=== PATIENT | female | born 1970 | race Caucasian/White ===

== ENCOUNTER 2016-05-15 01:12 | Emergency (ER) | payer BC ==
[2016-05-15 01:26] VITALS: RESP 18
[2016-05-15] MEDS ORDERED: MECLIZINE 12.5 MG TAB PO STA (01:58)
[2016-05-15] MEDS ORDERED: SODIUM CHLORIDE 0.9% 1,000 ML IV STA (01:58)
--- NOTE | 2016-05-15 02:06 | ED ---
Dizziness HPI - General Chief Complaint: Dizziness Stated Complaint: high BP Time Seen by Provider: 05/15/16 01:42 Source: patient, RN notes reviewed Mode of arrival: ambulatory Limitations: no limitations - History of Present Illness Initial Comments: Patient is a 45-year-old female with chief complaint of feeling lightheaded while she was at work today. 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 She states that she was standing for a long period of time and felt as if the area that she was standing was spinning around her. She states that this is never happened before. She states that during the time that she was feeling dizzy her supervisor accounting clerks to occur and to have her blood pressure checked. Her blood pressure at that time was 160/90. Patient reports that she has no significant medical history including high blood pressure and does not take any medications. Patient states that she does take Zoloft for depression but is relatively healthy besides that. Patient states that she is a chronic smoker and smokes approximately a pack a day. Patient reports that she's had an increased cough for the past 3 days. She denies any fever or chills, chest pain or significant shortness of breath. She denies any abdominal pain, nausea vomiting dysuria or hematuria, or changes in stools. - Related Data Home Medications Medication Instructions Recorded Confirmed Sertraline [Zoloft] 100 mg PO DAILY 05/15/16 05/15/16 Previous Rx's Medication Instructions Recorded Albuterol Inhaler [Ventolin Hfa 1 - 2 puff INHALATION Q6HR PRN #1 05/15/16 Inhaler] inhaler methylPREDNISolone Dose Pack 4 mg PO DIRECTED #21 package 05/15/16 [Medrol Dose Pack] Allergies Allergy/AdvReac Type Severity Reaction Status Date / Time aspirin AdvReac Vomiting Verified 05/15/16 01:22 Review of Systems ROS Statement: Those systems with pertinent positive or pertinent negative responses have been documented in the HPI. ROS Other: All systems not noted in ROS Statement are negative. Past Medical History Past Medical History: No Reported History History of Any Multi-Drug Resistant Organisms: None Reported Past Surgical History: No Surgical Hx Reported Past Psychological History: Depression Smoking Status: Current every day smoker Past Alcohol Use History: Occasional Past Drug Use History: None Reported General Exam - General Exam Comments Initial Comments: Well-appearing 45-year-old female. No acute distress.General: Well appearing, well nourished, in no distress. Oriented x 3, normal mood and affect . Ambulating without difficulty. Skin: Good turgor, no rash, unusual bruising or prominent lesions Hair: Normal texture and distribution. HEENT: Head: Normocephalic, atraumatic, no visible or palpable masses, depressions, or scaring. Eyes: Visual acuity intact, conjunctiva clear, sclera non-icteric, EOM intact, PERRL. Ears: EACs clear, TMs translucent & cone of light visualized. hearing intact. Nose: No external lesions, mucosa non-inflamed, septum and turbinates normal Mouth: Mucous membranes moist, no mucosal lesions. Teeth/Gums: No obvious caries or periodontal disease. No gingival inflammation or significant resorption. Pharynx: Mucosa non-inflamed, no tonsillar hypertrophy or exudate Neck: Supple, without lesions, bruits, or adenopathy, thyroid non-enlarged and non-tender Heart: No cardiomegaly or thrills; regular rate and rhythm, no murmur or gallop Lungs: Wheezes of mild wheezing. No evidence of diminished breath sounds. Abdomen: Bowel sounds normal, no tenderness, organomegaly, masses, or hernia Back: Spine normal without deformity or tenderness, no CVA tenderness Rectal: Normal sphincter tone, no hemorrhoids or masses palpable Extremities: No amputations or deformities, cyanosis, edema or varicosities, peripheral pulses intact Musculoskeletal: Normal gait and station. No misalignment, asymmetry, crepitation, defects, tenderness, masses, effusions, decreased range of motion, instability, atrophy or abnormal strength or tone in the head, neck, spine, ribs , pelvis or extremities. Neurologic: CN 2-12 normal. Sensation to pain, touch, and proprioception normal. DTRs normal in upper and lower extremities. No pathologic reflexes. Psychiatric: Oriented X3, intact recent and remote memory, judgment and insight , normal mood and affect. Limitations: no limitations Course Vital Signs 05/15/16 05/15/16 01:23 02:52 Temperature 98.8 F Pulse Rate 82 80 Respiratory 18 18 Rate Blood Pressure 150/81 133/63 O2 Sat by Pulse 97 96 Oximetry EKG Findings - EKG Comments: EKG Findings:: EKG shows normal sinus rhythm. Ventricular rate of 60 bpm. WV interval 160 ms. QRS duration 82 ms. QT/QTc is 416 since 442 ms. No evidence of this elevation or T-wave inversion. No evidence of atrial or ventricular arrhythmias. Medical Decision Making - Medical Decision Making Patient is a 45-year-old female that she claimed of feeling lightheaded while she was standing at work. Patient states that she has also had increased cough for the past 3 days. She is a chronic smoker. Lab work was obtained and IV was established. Patient was given 1 L of fluids and chest x-rays obtained. Chest x-ray shows chronic bronchitis changes and mild right-sided atelectasis. Lab work shows no evidence of any acute abnormalities at this time, and EKG was also normal. Patient will be discharged at this time instructed to follow-up with primary care provider. I will provide the patient a prescription with a inhaler and steroid Dosepak for cough. Return parameters were discussed. - Lab Data Result diagrams: 05/15/16 02:10 05/15/16 02:10 Lab Results 05/15/16 05/15/16 05/15/16 Range/Units 02:10 02:10 02:10 WBC 7.6 (3.8-10.6) k/uL RBC 4.37 (3.80-5.40) m/uL Hgb 14.1 (11.4-16.0) gm/dL Hct 42.3 (34.0-46.0) % MCV 96.8 (80.0-100.0) fL MCH 32.2 (25.0-35.0) pg MCHC 33.2 (31.0-37.0) g/dL RDW 12.3 (11.5-15.5) % Plt Count 201 (150-450) k/uL Neutrophils % 67 % Lymphocytes % 23 % Monocytes % 6 % Eosinophils % 2 % Basophils % 0 % Neutrophils # 5.1 (1.3-7.7) k/uL Lymphocytes # 1.8 (1.0-4.8) k/uL Monocytes # 0.4 (0-1.0) k/uL Eosinophils # 0.2 (0-0.7) k/uL Basophils # 0.0 (0-0.2) k/uL PT 10.5 (9.0-12.0) sec INR 1.0 (<1.1) Sodium 143 (137-145) mmol/L Potassium 4.1 (3.5-5.1) mmol/L Chloride 108 H (98-107) mmol/L Carbon Dioxide 23 (22-30) mmol/L Anion Gap 12 mmol/L BUN 10 (7-17) mg/dL Creatinine 0.60 (0.52-1.04) mg/dL Est GFR (MDRD) Af Amer >60 (>60 ml/min/1.73 sqM) Est GFR (MDRD) Non-Af >60 (>60 ml/min/1.73 sqM) Glucose 125 H (74-99) mg/dL Calcium 9.4 (8.4-10.2) mg/dL Total Bilirubin 0.5 (0.2-1.3) mg/dL AST 16 (14-36) U/L ALT 28 (9-52) U/L Alkaline Phosphatase 76 (38-126) U/L Troponin I (0.000-0.034) ng/mL Total Protein 6.9 (6.3-8.2) g/dL Albumin 3.9 (3.5-5.0) g/dL Urine Color Urine Appearance (Clear) Urine pH (5.0-8.0) Ur Specific [place] (1.001-1.035) Urine Protein (Negative) Urine Glucose (UA) (Negative) Urine Ketones (Negative) Urine Blood (Negative) Urine Nitrate (Negative) Urine Bilirubin (Negative) Urine Urobilinogen (<2.0) mg/dL Ur Leukocyte Esterase (Negative) 05/15/16 05/15/16 Range/Units 02:10 02:40 WBC (3.8-10.6) k/uL RBC (3.80-5.40) m/uL Hgb (11.4-16.0) gm/dL Hct (34.0-46.0) % MCV (80.0-100.0) fL MCH (25.0-35.0) pg MCHC (31.0-37.0) g/dL RDW (11.5-15.5) % Plt Count (150-450) k/uL Neutrophils % % Lymphocytes % % Monocytes % % Eosinophils % % Basophils % % Neutrophils # (1.3-7.7) k/uL Lymphocytes # (1.0-4.8) k/uL Monocytes # (0-1.0) k/uL Eosinophils # (0-0.7) k/uL Basophils # (0-0.2) k/uL PT (9.0-12.0) sec INR (<1.1) Sodium (137-145) mmol/L Potassium (3.5-5.1) mmol/L Chloride (98-107) mmol/L Carbon Dioxide (22-30) mmol/L Anion Gap mmol/L BUN (7-17) mg/dL Creatinine (0.52-1.04) mg/dL Est GFR (MDRD) Af Amer (>60 ml/min/1.73 sqM) Est GFR (MDRD) Non-Af (>60 ml/min/1.73 sqM) Glucose (74-99) mg/dL Calcium (8.4-10.2) mg/dL Total Bilirubin (0.2-1.3) mg/dL AST (14-36) U/L ALT (9-52) U/L Alkaline Phosphatase (38-126) U/L Troponin I <0.012 (0.000-0.034) ng/mL Total Protein (6.3-8.2) g/dL Albumin (3.5-5.0) g/dL Urine Color Yellow Urine Appearance Clear (Clear) Urine pH 5.5 (5.0-8.0) Ur Specific [place] 1.014 (1.001-1.035) Urine Protein Negative (Negative) Urine Glucose (UA) 3+ H (Negative) Urine Ketones Negative (Negative) Urine Blood Negative (Negative) Urine Nitrate Negative (Negative) Urine Bilirubin Negative (Negative) Urine Urobilinogen <2.0 (<2.0) mg/dL Ur Leukocyte Esterase Negative (Negative) - Radiology Data Radiology results: report reviewed Chest x-ray shows mild atelectasis in the right lung base. Possible chronic bronchitis. No evidence of focal pneumonia. Disposition Clinical Impression: Bronchitis, Light-headed Disposition: HOME SELF-CARE Condition: Good Instructions: Dizziness (ED), Acute Bronchitis (ED) Additional Instructions: Patient denies to rest, increase fluids and to complete steroid prescription. Also use albuterol inhaler whenever short of breath or increased coughing. Follow-up with primary care provider within the next 2-3 days. Return to the emergency room if any alarming signs or symptoms occur. Prescriptions: Albuterol Inhaler [Ventolin Hfa Inhaler] 1 - 2 puff INHALATION Q6HR PRN #1 inhaler PRN Reason: Shortness Of Breath methylPREDNISolone Dose Pack [Medrol Dose Pack] 4 mg PO DIRECTED #21 package Time of Disposition: 03:18
[2016-05-15 02:23] LABS: Basophils % (A) 0 %; CH 32.6; CHCM 33.9; Eosinophils # (A) 0.2 k/uL (0-0.7); Eosinophils % (A) 2 %; HCT 42.3 % (34.0-46.0); HDW 2.59; HGB 14.1 gm/dL (11.4-16.0); Luc # (Auto) 0.11; Luc % (Auto) 1; Lymphocytes # (A) 1.8 k/uL (1.0-4.8); Lymphocytes % (A) 23 %; MCH 32.2 pg (25.0-35.0); MCHC 33.2 g/dL (31.0-37.0); MCV 96.8 fL (80.0-100.0); Mean Platelet Volume 7.1; Monocytes # (A) 0.4 k/uL (0-1.0); Monocytes % (A) 6 %; Neutrophils # (A) 5.1 k/uL (1.3-7.7); Neutrophils % (A) 67 %; RBC 4.37 m/uL (3.80-5.40); RDW 12.3 % (11.5-15.5); WBC 7.6 k/uL (3.8-10.6); WBC (Perox) 7.56
[2016-05-15 02:29] LABS: Prothrombin Time 10.5 sec (9.0-12.0)
--- NOTE | 2016-05-15 02:36 | XR ---
EXAMINATION TYPE: XR chest 2V DATE OF EXAM: 05/15/2016 2:20 AM COMPARISON: None. HISTORY: Hypertension dizziness and cough. TECHNIQUE: Frontal and lateral views of the chest are obtained. FINDINGS: Mild peribronchial cuffing is suggested with possible chronic bronchitis changes. Mild atelectasis is suggested in the right lung base. No definite focal pneumonia pneumothorax or ple ural effusion is noted. Heart is not enlarged. [id number] degenerative changes are present in the thoracic spine. IMPRESSION: 1. Mild atelectasis in the right lung base. 2. Possible chronic bronchitis. 3. No focal pneumonia.
[2016-05-15 02:41] LABS: ALT 28 U/L (9-52); AST 16 U/L (14-36); Alkaline Phosphatase 76 U/L (38-126); Anion Gap 12 mmol/L; Blood Urea Nitrogen 10 mg/dL (7-17); Calcium 9.4 mg/dL (8.4-10.2); Carbon Dioxide 23 mmol/L (22-30); Chloride 108 mmol/L (98-107); Glucose 125 mg/dL (74-99); Non-African American GFR(MDRD) >60 (>60 ml/min/1.73 sqM); Potassium 4.1 mmol/L (3.5-5.1); Sodium 143 mmol/L (137-145); Total Bilirubin 0.5 mg/dL (0.2-1.3); Total Protein 6.9 g/dL (6.3-8.2)
[2016-05-15 02:48] LABS: Appearance,Urine Clear (Clear); Bilirubin,Urine Negative (Negative); Glucose,Urine (UA) 3+ (Negative); Ketones,Urine Negative (Negative); Leukocyte Esterase,Urine Negative (Negative); Nitrite,Urine Negative (Negative); PH, Urine 5.5 (5.0-8.0); Protein,Urine Negative (Negative); Specific Gravity,Urine 1.014 (1.001-1.035); UA Billing (MACRO vs. MICRO) CHEM; Urobilinogen,Urine <2.0 mg/dL (<2.0)
[2016-05-15 02:52] VITALS: BP 133/63
[2016-05-15 03:47] VITALS: PULSE 89; TEMP 98
== END 2016-05-15 03:47 | disposition home or self-care (01) ==
LOC: EC 01:12
DX: J20.9 Acute bronchitis, unspecified (principal); R42 Dizziness and giddiness; J98.11 Atelectasis; F32.9 Major depressive disorder, single episode, unspecified; F17.200 Nicotine dependence, unspecified, uncomplicated; Z79.899 Other long term (current) drug therapy; Z88.6 Allergy status to analgesic agent
CPT/HCPCS: 36415; 71020; 80053; 81003; 84484; 85025; 85610; 93005; 96360; 96361; 99284

== ENCOUNTER → 2016-05-21 | Outpatient (CLI) | payer BC ==
--- NOTE | 2016-05-31 11:29 | MM ---
Reason for exam: screening (asymptomatic). Last mammogram was performed 3 years and 4 months ago. Physical Findings: A clinical breast exam by your physician is recommended on an annual basis and results should be correlated with mammographic findings. MG Screening Mammo w CAD Bilateral CC and MLO view(s) were taken. Prior study comparison: January 18, 2013, mammogram, performed at [facility]. There are scattered fibroglandular densities. There is no discrete abnormality. ASSESSMENT: Negative, BI-RAD 1 RECOMMENDATION: Routine screening mammogram of both breasts in 1 year.
== END | disposition home or self-care (01) ==
LOC: RADMAMWWP 08:53
PROVIDERS: ATTEND Obstetrics & Gynecology
DX: Z12.31 Encounter for screening mammogram for malignant neoplasm of breast (principal)

== ENCOUNTER → 2016-05-21 | Outpatient (CLI) | payer BC ==
[2016-05-21 10:10] LABS: Basophils # (A) 0.1 k/uL (0-0.2); Basophils % (A) 1 %; CH 32.3; CHCM 33.2; Eosinophils # (A) 0.1 k/uL (0-0.7); Eosinophils % (A) 1 %; HDW 2.55; HGB 15.4 gm/dL (11.4-16.0); Luc # (Auto) 0.18; Luc % (Auto) 1; Lymphocytes # (A) 2.9 k/uL (1.0-4.8); Lymphocytes % (A) 19 %; MCH 31.3 pg (25.0-35.0); MCHC 32.1 g/dL (31.0-37.0); MCV 97.7 fL (80.0-100.0); Mean Platelet Volume 7.9; Monocytes # (A) 0.8 k/uL (0-1.0); Monocytes % (A) 6 %; Neutrophils # (A) 10.9 k/uL (1.3-7.7); Neutrophils % (A) 73 %; RBC 4.91 m/uL (3.80-5.40); RDW 12.6 % (11.5-15.5); WBC (Perox) 15.24
[2016-05-21 10:37] LABS: Anion Gap 14 mmol/L; Carbon Dioxide 24 mmol/L (22-30); Chloride 103 mmol/L (98-107); Glucose 151 mg/dL (74-99); Non-African American GFR(MDRD) >60 (>60 ml/min/1.73 sqM); Sodium 141 mmol/L (137-145)
[2016-05-21 10:42] LABS: Blood Urea Nitrogen 23 mg/dL (7-17); Potassium 4.9 mmol/L (3.5-5.1)
== END | disposition home or self-care (01) ==
LOC: LABPAT 08:57
PROVIDERS: ATTEND Obstetrics & Gynecology
DX: Z01.812 Encounter for preprocedural laboratory examination (principal)
CPT/HCPCS: 80051; 82565; 82947; 84520; 85025; 86850; 86900; 86901; 87086

== ENCOUNTER 2016-05-28 05:45 | Day surgery (SDC) | payer BC ==
[2016-05-25 08:40] VITALS: BMI 38.0
[~2016-05-28 05:45] MED LIST: ceFAZolin 2 GM in SODIUM CHLORIDE 0.9% 100 ML IVPB ONE
[2016-05-28] MEDS ORDERED: HYDROmorphone 1 MG/ML 1 ML SYRINGE IVP PRN (05:55)
[2016-05-28] MEDS ORDERED: MIDAZOLAM 2 MG/2 ML VIAL IV PRN (05:55)
[2016-05-28] MEDS ORDERED: DEXAMETHASONE SOD PHOSPHATE 10 MG/ML 1 ML VIAL IV ONE (05:55)
[2016-05-28] MEDS ORDERED: ONDANSETRON 4 MG/2 ML VIAL IVP ONE (05:55)
[2016-05-28] MEDS ORDERED: SCOPOLAMINE 1.5MG/72HR PATCH TRANSDERM ONE (05:55)
[2016-05-28] MEDS: LACTATED RINGERS 1,000 ML IV SCH ×2 (06:38→06:42)
[2016-05-28] MEDS ORDERED: LIDOCAINE 1% 20 ML VIAL (10MG/ML) FOR IV START INTRADERMA ONE ×3 (06:38→06:43)
[2016-05-28 06:44] LABS: Glucose,Whole Blood 141 mg/dL (75-99)
[2016-05-28] MEDS ORDERED: PROPOFOL 10 MG/ML 20 ML VIAL IV ONE (07:33)
[2016-05-28] MEDS ORDERED: ROCURONIUM BROMIDE 10 MG/ML 10 ML VIAL IV ONE (07:33)
[2016-05-28] MEDS ORDERED: MIDAZOLAM 2 MG/2 ML VIAL ONE (07:33)
[2016-05-28] MEDS ORDERED: HYDROmorphone (PF) 1 MG/ML ONE (07:33)
[2016-05-28] MEDS ORDERED: SUCCINYLCHOLINE CHLORIDE VIAL 200 MG/10 ML VIAL IV ONE (07:33)
[2016-05-28] MEDS ORDERED: fentaNYL (PF) 50 MCG/ML 2 ML AMP ONE (07:33)
[2016-05-28] MEDS ORDERED: GLYCOPYRROLATE 0.2 MG/ML 2 ML VIAL ONE (07:33)
[2016-05-28] MEDS ORDERED: NEOSTIGMINE 1 MG/ML 10 ML VIAL ONE (07:33)
[2016-05-28] MEDS ORDERED: LIDOCAINE 1% INJ 10MG/ML (20 ML MDV) ONE (07:33)
[2016-05-28] MEDS ORDERED: diphenhydrAMINE 50 MG/ML 1 ML VIAL IVP PRN (07:40)
[2016-05-28] MEDS ORDERED: IBUPROFEN 600 MG TAB PO PRN (07:40)
[2016-05-28] MEDS ORDERED: SIMETHICONE 80 MG CHEWABLE PO PRN (07:40)
[2016-05-28] MEDS ORDERED: METOCLOPRAMIDE 5 MG/ML 2 ML VIAL IVP PRN (07:40)
[2016-05-28] MEDS ORDERED: Acetaminophen-Codeine 300-30mg TAB PO PRN ×2 (07:40)
[2016-05-28] MEDS ORDERED: ZOLPIDEM 5 MG TAB PO PRN (07:40)
[2016-05-28] MEDS ORDERED: ONDANSETRON 4 MG/2 ML VIAL IVP PRN (07:40)
[2016-05-28] MEDS ORDERED: BUPIVACAINE (PF) 0.5% 30 ML VIAL SQ ONE ×2 (08:05→09:48)
--- NOTE | 2016-05-28 09:55 | P.OP ---
Date of Procedure: 05/28/16 Preoperative Diagnosis: #1. Menometrorrhagia #2. Fibroid uterus Postoperative Diagnosis: Same Procedure(s) Performed: #1. Da Malika robotically assisted laparoscopic hysterectomy #2. Bilateral salpingectomy #3. Diagnostic cystoscopy Anesthesia: JUVENAL Surgeon: Eduin Oscar Hog Trader #1: Tasha Jeff Estimated Blood Loss (ml): 40 IV fluids (ml): 1,400 Urine output (ml): 300 Pathology: other (Uterus and bilateral fallopian tubes) Condition: stable Disposition: PACU Operative Findings: Preoperative pelvic examination demonstrated a roughly 5-6 week sized midplane mobile normal uterus with normal adnexa bilaterally. Intraoperatively, the patient was noted to have a filmy omental adhesion to the umbilicus which was released during the surgery. The bladder and bladder peritoneum were densely adherent to the anterior wall uterus and the entire area above the uterine vasculature was very thick and dense from adhesions. The bilateral ovaries were normal. There was evidence of bilateral tubal ligation. The fallopian tubes were removed independently of the uterus and removed through the operative port. Post-procedurally, the hysteroscopic and laparoscopic view of the dome of the bladder demonstrated no evidence of injury. The bilateral ureters were seen peristalsing through the cystoscope. Description of Procedure: The patient was prepped and draped in usual fashion after general endotracheal anesthesia was administered by the anesthesiologist. A weighted speculum was placed and the anterior lip of the cervix was grasped with single-tooth tenaculum. The uterus was sounded to 9 cm and the cervix measured to slightly less than 2.5 cm. [place] selection of an 8 mm uterine manipulator and a 2.5 cm David cup. Cervical stay sutures were placed from 10-8 at the cervicovaginal junction and 2 total 4 and the cervicovaginal junction and firmly tied down. The Rhea uterine manipulator David cup were then applied to the cervix in standard fashion without difficulty. The tenaculum had previously been released. A Saeed catheter was placed for the procedure. Attention was then turned to the abdomen where a site was selected approximately 3-4 cm above the umbilicus in the midline where an 8 mm incision was made in the transverse plane allowing insertion of a 5 mm optical port under direct visualization without difficulty. A site was selected approximately directly laterally to the umbilicus and approximately 12 cm lateral to it where an 8 mm incision was made allowing insertion of an 8 mm da Malika port under direct visualization without difficulty. A similar operation was carried on the left side. The distance between the left da Malika port and the optical trocar was then have and a site selected the approximately 3 cm above the optical port were 10 mm incision was made allowing a 10 mm assistance port to be placed under direct visualization without difficulty. The robot was then docked to the patient without difficulty. I then presented to the console where a male and bipolar cautery forceps was placed in the left arm, arm #2, and a monopolar cautery scissors placed in the right arm, arm #1. The da Malika was then utilized to take the omental adhesion at the umbilicus down sharply with monopolar cautery. The area of adhesion was then examined and any small points of bleeding made hemostatic using the monopolar cautery scissors. Attention was then turned to the pelvis. The left fallopian tube was elevated and removed using the [place] cautery forceps followed by the scissors. An initial attempt to leave it attached to the uterine specimen was abandoned as it was causing visual difficulties. He was therefore removed and removed from the patient through the reference library assistant port. The utero-ovarian ligament was then taken down through the round ligament where the tissues were noted to be extraordinarily thick and dense. Uterine vasculature was skeletonized to the best of our ability and then cauterized. Attention was turned to the right side where the right fallopian tube segment was removed and passed through the assistance port as well. The utero-ovarian and round ligaments were then cauterized similarly to the right side. The bladder peritoneum had been developed across the midline was further developed to join the 2 sides. The bladder peritoneum was then sharply and bluntly dissected across the anterior lower uterine segment. The area across the uterine vasculature on each side was extraordinarily thick and dense. Sharp dissection along with cautery were utilized to stay immediately adjacent to the uterus while controlling any vascular bleeding. Once the uterine vasculature was felt to have been cauterized bilaterally and the bladder was reflected distally anteriorly, the uterus was anteverted and the posterior cul-de-sac entered sharply with the monopolar cautery scissors. Once the David cup was identified, it was followed around to the sides. Occasional use of the bipolar cautery was made where the tissue was too thick to continue down and monopolar fashion. Any small points of bleeding along the way were made hemostatic with Bovie. Once the lateral margins had been transected, the uterus was retroverted and the incision continued across the anterior portion of the vaginal cuff. The uterus was then removed into the vagina with some difficulty as the fundus was moderately larger than the size of the vagina. Once accomplished, the monopolar cautery scissors was replaced with a laparoscopic suturing device. A stitch of O Stratafix suture was utilized to close the vaginal cuff in standard fashion without difficulty. The stitch was removed through the reference library assistant port. The pressure was released and throat suction/irrigation carried out. Any small points of bleeding were made hemostatic using the [place] bipolar cautery forceps. Once hemostasis was adequate, I removed myself from the console returned to the patient where the Saeed catheter had been removed. A diagnostic cystoscope was placed in the bladder and the bladder partially filled. The dome of the bladder was examined both cystoscopically and laparoscopically and found to be without injury. The ureteral orifices were seen peristalsing bilaterally. All instrumentation was then removed and the Saeed catheter return to the patient. The robot was undocked and all the ports removed. The pneumoperitoneum was entirely evacuated. The incisions were closed with interrupted subcuticular stitches of 4-0 Vicryl and then infused with a total of 10 mL of half percent Marcaine without epinephrine. Estimated blood loss for the case was approximate 40 mL. There were no complications. All sponge, instrument, and needle counts were correct. The patient tolerated the procedure well and proceeded to the recovery room in stable condition.
[2016-05-28] MEDS ORDERED: LACTATED RINGERS 1,000 ML IV SCH (10:00)
[2016-05-28] MEDS ORDERED: INSULIN LISPRO (humaLOG) 300 UNIT/3 ML VIAL SQ ONE (10:30)
[2016-05-28 10:33] LABS: Glucose,Whole Blood 248 mg/dL (75-99)
[2016-05-28] MEDS: INSULIN LISPRO (humaLOG) 300 UNIT/3 ML VIAL SQ SCH ×3 (15:56→21:24)
[2016-05-28] MEDS: SENNOSIDES-DOCUSATE SODIUM 1 EACH TAB PO SCH ×2 (15:56→21:23)
[2016-05-28 17:15] LABS: Glucose,Whole Blood 172 mg/dL (75-99)
[2016-05-28] MEDS: KETOROLAC 30 MG/ML 1 ML VIAL IVP PRN (17:20)
[2016-05-28 20:30] LABS: Glucose,Whole Blood 164 mg/dL (75-99)
[2016-05-29 06:39] LABS: Basophils % (A) 0 %; CH 32.3; CHCM 32.4; Eosinophils # (A) 0.2 k/uL (0-0.7); Eosinophils % (A) 2 %; HCT 41.3 % (34.0-46.0); HDW 2.38; HGB 13.3 gm/dL (11.4-16.0); Luc # (Auto) 0.08; Luc % (Auto) 1; Lymphocytes # (A) 0.5 k/uL (1.0-4.8); Lymphocytes % (A) 5 %; MCH 32.3 pg (25.0-35.0); MCHC 32.3 g/dL (31.0-37.0); Mean Platelet Volume 7.1; Monocytes # (A) 0.6 k/uL (0-1.0); Monocytes % (A) 5 %; Neutrophils # (A) 9.9 k/uL (1.3-7.7); Neutrophils % (A) 88 %; RBC 4.13 m/uL (3.80-5.40); RDW 12.5 % (11.5-15.5); WBC 11.3 k/uL (3.8-10.6); WBC (Perox) 12.06
[2016-05-29] MEDS: KETOROLAC 30 MG/ML 1 ML VIAL IVP PRN (06:58)
[2016-05-29 07:08] LABS: Glucose,Whole Blood 120 mg/dL (75-99)
[2016-05-29] MEDS: INSULIN LISPRO (humaLOG) 300 UNIT/3 ML VIAL SQ SCH ×2 (07:50→12:21)
[2016-05-29 09:13] VITALS: BP 114/57; PULSE 67; RESP 18; TEMP 98.6
[2016-05-29] MEDS: SENNOSIDES-DOCUSATE SODIUM 1 EACH TAB PO SCH (09:13)
[2016-05-29 11:50] LABS: Glucose,Whole Blood 187 mg/dL (75-99)
--- NOTE | 2016-05-29 11:59 | P.DS ---
Providers Expected date of discharge: 05/29/16 Attending physician: Eduin Oscar Primary care physician: Roland Armendariz - Discharge Diagnosis(es) (1) Fibroid uterus Current Visit: Yes Status: Acute (2) Menometrorrhagia Current Visit: Yes Status: Acute Hospital Course: The patient is a 45-year-old 2 para 2 who initially presented to the office with complaints of increasing menometrorrhagia and had a known fibroid uterus. She additionally was having some dysmenorrhea. We discussed multiple different treatment options and she requested definitive therapy with hysterectomy. Her surgical history includes the 2 sections and her examination bears out that only an open or laparoscopic approach is viable. As a result, she was taken the operating room for da Malika robotically assisted laparoscopic hysterectomy at which time she also underwent bilateral salpingectomy and subsequent diagnostic cystoscopy. All procedures were entirely uncomplicated though she did have a moderate amount of adhesive disease which was dealt with intraoperatively without complications. Her postoperative course was unremarkable with vital signs remaining stable and her temperature was afebrile throughout. She was tolerating regular diet by the morning of postoperative day #1. She was deemed stable for discharge on postoperative day #1 and was discharged home to follow-up in the office in 2 weeks for incision checks and 8 weeks routinely. Discharge instructions included calling for any significantly increased bleeding, incisional complaints , abdominal pain, fever, or anything else that concerned her. She is additionally instructed to have nothing in the vagina to include intercourse for at least 8 weeks time. She was also instructed to do no driving until off of all pain medications or 2 weeks' time, whichever came first. She understood her instructions and agrees to follow up as noted above. Discharge medications included a prescription for Tylenol 3, 1-2 by mouth every 6 hours when necessary pain, #20 dispensed with no refills. She was otherwise to resume all home medications. She did have moderately elevated blood sugars during her hospital stay and was placed on sliding scale insulin though none of her sugars ever exceeded 190. Discharge hemoglobin and hematocrit were 13.3 and 41.3 respectively. Procedures: #1. Da Malika robotically assisted laparoscopic hysterectomy with bilateral salpingectomy #2. Diagnostic cystoscopy Patient Condition at Discharge: Good Plan - Discharge Summary New Discharge Prescriptions: Acetaminophen-Codeine 300-30mg [Tylenol #3] 2 tab PO Q6H PRN #20 tablet PRN Reason: Pain Discharge Medication List Albuterol Inhaler [Ventolin Hfa Inhaler] 1 - 2 puff INHALATION Q6HR PRN #1 inhaler 05/15/16 [Rx] Sertraline [Zoloft] 100 mg PO HS 05/15/16 [History] Acetaminophen-Codeine 300-30mg [Tylenol #3] 2 tab PO Q6H PRN #20 tablet [Rx] Follow up Appointment(s)/Referral(s): Eduin Oscar MD [STAFF PHYSICIAN] - 2 Weeks Patient Instructions/Handouts: Laparoscopic Hysterectomy (DC) Activity/Diet/Wound Care/Special Instructions: No heavy lifting, no house work, no driving, no intercourse, no tampons, nothing in the vagina. You may shower. Leave the white steri strips in place over your incisions. They will fall off on their own. Notify Dr Oscar if you develop a fever, bleeding from your vagina, increase in pain, or any other concerns or questions you may have. Discharge Disposition: HOME SELF-CARE
[2016-05-29 14:26] LABS: Hemoglobin A1C 6.6 % (4.2-6.1)
== END 2016-05-29 13:00 | disposition home or self-care (01) ==
LOC: OR 05:45 → 6PED 10:10 → OR 05-29 13:00
PROVIDERS: ATTEND Obstetrics & Gynecology
DX: D25.1 Intramural leiomyoma of uterus (principal); N92.1 Excessive and frequent menstruation with irregular cycle; N83.8 Other noninflammatory disorders of ovary, fallopian tube and broad ligament; J45.909 Unspecified asthma, uncomplicated; F17.200 Nicotine dependence, unspecified, uncomplicated; F32.9 Major depressive disorder, single episode, unspecified; Z79.899 Other long term (current) drug therapy; Z88.6 Allergy status to analgesic agent
CPT/HCPCS: 58571; S2900; 81025; 83036; 85025; 86850; 86900; 86901; 88307

== ENCOUNTER 2021-01-01 03:41 | Observation (INO) | payer BC ==
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
--- NOTE | 2021-01-01 05:12 | CT ---
EXAMINATION TYPE: CT lower extremity RT wo con DATE OF EXAM: 01/01/2021 COMPARISON: None HISTORY: hematoma anterior thigh. swelling. no prior on PACS CT DLP: 2708.2 mGycm Automated exposure control for dose reduction was used. Images obtained from the level of the acetabulum to the proximal tibia without contrast. There is irregular fluid density fluid collection in the anterior soft tissues of the mid thigh on th e medial aspect. This measures 11 x 9 x 6 cm and consistent with acute hematoma. Hematoma lies within the subcutaneous fat. No hemorrhage seen within the quadriceps muscle. This has density of 10. The femur is intact. There is no evidence of hip fracture. The knee joint is intact. There is spurrin g on the patella. There is mild narrowing of the knee joint spaces. There is spurring of the femoral and tibial condyles. There is no evidence of joint effusion of the knee. IMPRESSION: Large subcutaneous hematoma in the anterior medial mid thigh. Mild osteoarthritis of the knee joint. No fracture seen.
[2021-01-01] MEDS ORDERED: MORPHINE SULFATE 4 MG/ML SYRINGE IV STA (05:25)
[2021-01-01] MEDS ORDERED: SODIUM CHLORIDE 0.9% 1,000 ML IV STA (05:25)
[2021-01-01] MEDS ORDERED: MORPHINE SULFATE 4 MG/ML SYRINGE IVP PRN (05:27)
[2021-01-01 06:23] LABS: Basophils % (A) 0 %; Eosinophils # (A) 0.2 k/uL (0-0.7); Eosinophils % (A) 1 %; HCT 41.7 % (34.0-46.0); HGB 13.3 gm/dL (11.4-16.0); Lymphocytes # (A) 1.9 k/uL (1.0-4.8); Lymphocytes % (A) 16 %; MCH 32.2 pg (25.0-35.0); MCV 100.5 fL (80.0-100.0); Mean Platelet Volume 8.1; Monocytes # (A) 0.7 k/uL (0-1.0); Monocytes % (A) 6 %; Neutrophils # (A) 9.2 k/uL (1.3-7.7); Neutrophils % (A) 76 %; Platelet Count 237 k/uL (150-450); RBC 4.15 m/uL (3.80-5.40); RDW 12.2 % (11.5-15.5); WBC 12.2 k/uL (3.8-10.6)
[2021-01-01 06:50] LABS: Partial Thromboplastin Time 22.1 sec (22.0-30.0); Prothrombin Time 10.2 sec (9.0-12.0)
[2021-01-01 07:47] LABS: ALT 10 U/L (4-34); AST 28 U/L (14-36); African American GFR (CKD) >90 (>60 ml/min/1.73 sqM); Albumin 3.8 g/dL (3.5-5.0); Alkaline Phosphatase 76 U/L (38-126); Anion Gap 8 mmol/L; Blood Urea Nitrogen 12 mg/dL (7-17); Calcium 9.5 mg/dL (8.4-10.2); Carbon Dioxide 23 mmol/L (22-30); Chloride 106 mmol/L (98-107); Glucose 144 mg/dL (74-99); Magnesium 1.9 mg/dL (1.6-2.3); Non-African American GFR(CKD) >90 (>60 ml/min/1.73 sqM); Phosphorus 3.5 mg/dL (2.5-4.5); Potassium 4.1 mmol/L (3.5-5.1); Sodium 137 mmol/L (137-145); Total Bilirubin 0.8 mg/dL (0.2-1.3); Total Protein 6.6 g/dL (6.3-8.2)
[2021-01-01 11:23] LABS: Glucose,Whole Blood 139 mg/dL (75-99)
[2021-01-01] MEDS: INSULIN ASPART (NovoLOG) 100 UNIT/ML VIAL SQ SCH ×3 (11:23→22:17)
[2021-01-01] MEDS: ATORVASTATIN 10 MG TAB PO SCH (11:23)
[2021-01-01] MEDS: SERTRALINE 50 MG TAB PO SCH (11:23)
[2021-01-01] MEDS: SERTRALINE 100 MG TAB PO SCH (11:23)
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
[2021-01-01] MEDS: NICOTINE 21MG/24HR PATCH TRANSDERM SCH (16:20)
[2021-01-01 17:31] LABS: Glucose,Whole Blood 125 mg/dL (75-99)
[2021-01-01 20:50] LABS: Glucose,Whole Blood 108 mg/dL (75-99)
[2021-01-02] MEDS: FAMOTIDINE 20 MG/2 ML VIAL IV SCH ×2 (01:17→07:48)
[2021-01-02] MEDS: INSULIN ASPART (NovoLOG) 100 UNIT/ML VIAL SQ SCH ×3 (04:52→17:36)
[2021-01-02 07:36] LABS: Glucose,Whole Blood 124 mg/dL (75-99)
[2021-01-02] MEDS: NICOTINE 21MG/24HR PATCH TRANSDERM SCH (07:47)
[2021-01-02] MEDS: SERTRALINE 100 MG TAB PO SCH (07:48)
[2021-01-02] MEDS: SERTRALINE 50 MG TAB PO SCH (07:48)
[2021-01-02] MEDS: ATORVASTATIN 10 MG TAB PO SCH (07:48)
[2021-01-02 12:05] LABS: Glucose,Whole Blood 108 mg/dL (75-99)
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
[2021-01-02 17:13] LABS: Glucose,Whole Blood 97 mg/dL (75-99)
[2021-01-02] MEDS ORDERED: LIDOCAINE 1% INJ 10MG/ML (20 ML MDV) ONE (18:56)
[2021-01-02] MEDS ORDERED: LACTATED RINGERS 1,000 ML IV ONE (18:56)
[2021-01-02] MEDS ORDERED: PROPOFOL 10 MG/ML 20 ML VIAL IV ONE (18:56)
[2021-01-02] MEDS ORDERED: MIDAZOLAM 2 MG/2 ML VIAL ONE (18:56)
[2021-01-02] MEDS ORDERED: fentaNYL (PF) 50 MCG/ML 2 ML AMP ONE (18:56)
[2021-01-02] MEDS ORDERED: ePHEDrine SULFATE/0.9% NACL/PF 50 MG/5 ML SYRINGE IV ONE (18:56)
[2021-01-02] MEDS ORDERED: BUPIVACAINE (PF) 0.5% 30 ML VIAL SQ ONE (19:10)
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
[2021-01-02 19:41] LABS: Glucose,Whole Blood 85 mg/dL (75-99)
[2021-01-02] MEDS ORDERED: HYDROmorphone 0.5 MG/0.5 ML SYRINGE IVP ONE ×2 (19:47→19:58)
[2021-01-02 20:27] LABS: Glucose,Whole Blood 91 mg/dL (75-99)
[2021-01-02] MEDS: FAMOTIDINE 20 MG TAB PO SCH (22:13)
[2021-01-03] MEDS: INSULIN ASPART (NovoLOG) 100 UNIT/ML VIAL SQ SCH ×3 (00:33→12:28)
[2021-01-03 07:17] LABS: Glucose,Whole Blood 118 mg/dL (75-99)
[2021-01-03 09:06] LABS: Basophils # (A) 0.03 X 10*3/uL (0.00-0.10); Basophils % (A) 0.4 %; Eosinophils % (A) 1.3 %; HCT 38.1 % (37.2-46.3); HGB 12.2 g/dL (12.0-15.0); Lymphocytes # (A) 1.32 X 10*3/uL (0.90-5.00); Lymphocytes % (A) 17.4 %; MCH 32.7 pg (27.0-32.0); MCV 102.1 fL (80.0-97.0); Mean Platelet Volume 10.8 fL (9.5-12.2); Monocytes # (A) 0.62 X 10*3/uL (0.20-1.00); Monocytes % (A) 8.2 %; Neutrophils # (A) 5.49 X 10*3/uL (1.80-7.70); Neutrophils % (A) 72.4 %; Platelet Count 195 X 10*3/uL (140-440); RBC 3.73 X 10*6/uL (4.10-5.20); RDW 12.3 % (11.5-14.5); WBC 7.58 X 10*3/uL (4.50-10.00)
[2021-01-03] MEDS: SERTRALINE 100 MG TAB PO SCH (09:39)
[2021-01-03] MEDS: NICOTINE 21MG/24HR PATCH TRANSDERM SCH (09:39)
[2021-01-03] MEDS: ATORVASTATIN 10 MG TAB PO SCH (09:39)
[2021-01-03] MEDS: SERTRALINE 50 MG TAB PO SCH (09:39)
[2021-01-03] MEDS: FAMOTIDINE 20 MG TAB PO SCH (09:39)
[2021-01-03 12:24] LABS: Glucose,Whole Blood 185 mg/dL (75-99)
--- NOTE | 2021-01-03 13:09 | P.PN ---
Subjective Progress Note Date: 01/03/21 Patient seen and examined. Overall much improved. Everything from surgery discussed with her including the seroma that was drained. From my standpoint able to be discharged home. Discussed home-going instructions. Maintain drain until seen by me in the office. Continue compression wrap of the area to help with reaccumulation of fluid. Objective - Vital Signs Vital signs: Vital Signs Temp 98.5 F 01/03/21 09:25 Pulse 67 01/03/21 09:25 Resp 16 01/03/21 09:25 BP 130/73 01/03/21 09:25 Pulse Ox 96 01/03/21 09:25 Intake & Output 01/02/21 01/03/21 01/03/21 18:59 06:59 18:59 Intake Total 400 600 250 Output Total 13 35 Balance 400 587 215 Intake: IV 400 100 Oral 500 250 Output: Drainage 10 35 Right Anterior Thigh 10 35 Estimated Blood Loss 3 Other: Voiding Method Toilet # Voids 1 1 - Labs CBC & Chem 7: 01/03/21 05:31 01/01/21 05:55 Labs: Abnormal Lab Results - Last 24 Hours (Table) 01/03/21 01/03/21 01/03/21 Range/Units 05:31 07:15 12:22 RBC 3.73 L (4.10-5.20) X 10*6/uL MCV 102.1 H (80.0-97.0) fL MCH 32.7 H (27.0-32.0) pg POC Glucose (mg/dL) 118 H 185 H (75-99) mg/dL
[2021-01-03 15:35] VITALS: BP 128/74; PULSE 65; RESP 18; TEMP 98.6
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
== END 2021-01-03 15:56 | disposition home or self-care (01) ==
LOC: EC 03:41 → 6NMEDSUR 05:26 → INTOOBSV 01-03 12:03 → OBSVTOIN 01-03 12:03 → MERGE 01-03 12:03 → UNDODISIN 01-03 15:56
PROVIDERS: ADMIT Hospitalist; ATTEND Hospitalist
DX: S70.11XA Contusion of right thigh, initial encounter (principal); S80.11XA Contusion of right lower leg, initial encounter; V86.55XA Driver of 3- or 4- wheeled all-terrain vehicle (ATV) injured in nontraffic accident, initial encounter; Z20.822 Contact with and (suspected) exposure to COVID-19; D72.829 Elevated white blood cell count, unspecified; E11.9 Type 2 diabetes mellitus without complications; E66.01 Morbid (severe) obesity due to excess calories; Z68.41 Body mass index [BMI] 40.0-44.9, adult; I10 Essential (primary) hypertension; F17.210 Nicotine dependence, cigarettes, uncomplicated; M06.9 Rheumatoid arthritis, unspecified; F41.9 Anxiety disorder, unspecified; F32.9 Major depressive disorder, single episode, unspecified; Y93.89 Activity, other specified; Z79.1 Long term (current) use of non-steroidal anti-inflammatories (NSAID); Z79.84 Long term (current) use of oral hypoglycemic drugs; Z79.899 Other long term (current) drug therapy; Z88.6 Allergy status to analgesic agent; Z90.710 Acquired absence of both cervix and uterus; Z90.49 Acquired absence of other specified parts of digestive tract; Z98.891 History of uterine scar from previous surgery
CPT/HCPCS: 10140; 99284; 96375; 96361; 96374; 93005; 97116; 97161; 97165; 86900; 86901; 80053; 83735; 84100; 84484; 85025 ×2; 85610; 85730; 86850; 87635; 73700; G0378 ×3; S4990 ×2; J2250; J2270 ×2; J2001; J3010; J2704; J1170

== ENCOUNTER 2023-05-12 06:20 | Day surgery (SDC) | payer BC, OTHER ==
[2023-05-11 12:15] VITALS: BMI 37.7
[2023-05-12] MEDS ORDERED: LIDOCAINE 1% (10MG/ML) FOR IV START INTRADERMA PRN (06:22)
[2023-05-12 07:11] LABS: Glucose,Whole Blood 119 mg/dL (70-110)
[2023-05-12] MEDS: LACTATED RINGERS 1,000 ML IV SCH (07:16)
[2023-05-12] MEDS ORDERED: PROPOFOL 10 MG/ML 20 ML VIAL IV ONE (07:29)
[2023-05-12] MEDS ORDERED: fentaNYL (PF) 50 MCG/ML 2 ML AMP ONE (07:29)
[2023-05-12] MEDS ORDERED: LIDOCAINE 2% (PF) 20 MG/ML 5 ML VIAL ONE (07:29)
--- NOTE | 2023-05-12 07:39 | P.GSHP ---
History of Present Illness H&P Date: 05/12/23 Chief Complaint: Dysphagia This is a 52-year-old female who has complaints of dysphagia. Patient went today for EGD. Past Medical History Past Medical History: Diabetes Mellitus, GERD/Reflux, Hypertension, Rheumatoid Arthritis (RA) Additional Past Medical History / Comment(s): ABD PAIN History of Any Multi-Drug Resistant Organisms: None Reported Past Surgical History: Section, Cholecystectomy, Ear Surgery, Hysterectomy Additional Past Surgical History / Comment(s): D&C, eye surgery, lung surgery, ESOPHAGEAL FISTULA AGE 2 DAYS OLD, SURGERY FOR HEMATOMA TO RT LOWER LEG, EAR DRUM REPAIR-BONE REPLACED, COLONOSCOPY Past Anesthesia/Blood Transfusion Reactions: Postoperative Nausea & Vomiting (PONV) Smoking Status: Current every day smoker - Past Family History Mother Family Medical History: No Reported History Medications and Allergies Home Medications Medication Instructions Recorded Confirmed Type Pioglitazone [Actos] 15 mg PO DAILY 01/01/21 05/11/23 History Sertraline [Zoloft] 150 mg PO DAILY 01/01/21 05/11/23 History Cetirizine HCl 10 mg PO DAILY 05/11/23 05/11/23 History Losartan [Cozaar] 50 mg PO DAILY 05/11/23 05/11/23 History Omeprazole 20 mg PO DAILY 05/11/23 05/11/23 History Allergies Allergy/AdvReac Type Severity Reaction Status Date / Time aspirin AdvReac Vomiting Verified 05/11/23 11:34 Surgical - Exam Vital Signs Temp Pulse Resp BP Pulse Ox 98.0 F 60 16 135/65 97 05/12/23 07:15 05/12/23 07:15 05/12/23 07:15 05/12/23 07:15 05/12/23 07:15 - General well developed, well nourished, no distress - Eyes PERRL - ENT normal pinna - Neck no masses - Respiratory normal expansion - Cardiovascular Rhythm: regular - Abdomen Abdomen: soft, non tender Results - Labs Abnormal Lab Results - Last 24 Hours (Table) 05/12/23 Range/Units 07:10 POC Glucose (mg/dL) 119 H (70-110) mg/dL Assessment and Plan Assessment: Dysphagia. Will perform EGD.
--- NOTE | 2023-05-12 07:42 | P.OP ---
Date of Procedure: 05/12/23 Preoperative Diagnosis: Dysphagia Postoperative Diagnosis: Mild antral gastritis Mild esophagitis Procedure(s) Performed: EGD Anesthesia: MAC Surgeon: Michi Goff Pathology: other (Antrum, esophagus) Condition: stable Disposition: PACU Description of Procedure: The patient was placed on the endoscopy table in the lateral position. She received IV sedation. The gastro/oropharynx passed in the esophagus and the stomach. Scope was placed through the pylorus. The first and second portion of the duodenum appeared normal. Scope was then repacked the antrum this appeared mildly Flaim. A biopsy was performed. The scope was then retroflexed and the Mainer of the stomach appeared normal. The GE junction was at 40 cm. The distal esophagu esophagus appeared mildly inflamed. A biopsy was performed. The proximal esophagus appeared normal. Scope withdrawn for the patient.
[2023-05-12 07:48] VITALS: TEMP 98
[2023-05-12 08:19] VITALS: BP 116/63; PULSE 67; RESP 16
== END 2023-05-12 08:39 | disposition home or self-care (01) ==
LOC: ORWHC2ENDO 06:20
PROVIDERS: ATTEND Surgery
DX: K31.89 Other diseases of stomach and duodenum (principal); K21.00 Gastro-esophageal reflux disease with esophagitis, without bleeding; K29.50 Unspecified chronic gastritis without bleeding; M06.9 Rheumatoid arthritis, unspecified; I10 Essential (primary) hypertension; E11.9 Type 2 diabetes mellitus without complications; F41.9 Anxiety disorder, unspecified; F32.A Depression, unspecified; Z90.49 Acquired absence of other specified parts of digestive tract; Z90.710 Acquired absence of both cervix and uterus; Z98.890 Other specified postprocedural states; F17.200 Nicotine dependence, unspecified, uncomplicated; Z79.84 Long term (current) use of oral hypoglycemic drugs; Z79.899 Other long term (current) drug therapy; Z88.6 Allergy status to analgesic agent
CPT/HCPCS: 88305; 43239; J3010; J2704; J2001

== ENCOUNTER → 2023-05-23 | Outpatient (CLI) | payer BC, OTHER ==
[2023-05-23 16:03] LABS: Basophils # (A) 0.05 X 10*3/uL (0.00-0.10); Basophils % (A) 0.6 %; Eosinophils # (A) 0.25 X 10*3/uL (0.04-0.35); Eosinophils % (A) 2.8 %; HCT 41.3 % (37.2-46.3); HGB 13.4 g/dL (12.0-15.0); Lymphocytes # (A) 2.21 X 10*3/uL (0.90-5.00); MCH 31.6 pg (27.0-32.0); MCHC 32.4 g/dL (32.0-37.0); MCV 97.4 FL (80.0-97.0); Mean Platelet Volume 10.7 FL (9.5-12.2); Monocytes # (A) 0.73 X 10*3/uL (0.20-1.00); Monocytes % (A) 8.3 %; NRBC Per 100 WBC 0 X 10*3/uL (0.00-0.01); Neutrophils # (A) 5.57 X 10*3/uL (1.80-7.70); Platelet Count 205 X 10*3/uL (140-440); RBC 4.24 X 10*6/uL (4.10-5.20); RDW 12.4 % (11.5-14.5); WBC 8.84 X 10*3/uL (4.50-10.00)
== END | disposition home or self-care (01) ==
LOC: LABWHC1 09:06
PROVIDERS: ATTEND Surgery
DX: Z01.818 Encounter for other preprocedural examination (principal); K21.01 Gastro-esophageal reflux disease with esophagitis, with bleeding
CPT/HCPCS: 36415; 85025; 93005

== ENCOUNTER 2023-06-06 07:30 | Inpatient (IN) | payer BC, OTHER ==
[2023-06-06] MEDS ORDERED: LIDOCAINE 1% (10MG/ML) FOR IV START INTRADERMA PRN (08:29)
[2023-06-06] MEDS ORDERED: HYDROmorphone 0.5 MG/0.5 ML SYRINGE IVP PRN (08:29)
[2023-06-06] MEDS ORDERED: MIDAZOLAM 2 MG/2 ML VIAL IV PRN (08:29)
[2023-06-06] MEDS: LACTATED RINGERS 1,000 ML IV SCH (08:56)
[2023-06-06] MEDS: ACETAMINOPHEN TAB 500 MG TAB PO PRN (09:04)
[2023-06-06] MEDS: DEXAMETHASONE SOD PHOSPHATE 4 MG/ML 1 ML VIAL IV ONE (09:04)
[2023-06-06] MEDS: HEPARIN SODIUM,PORCINE 5,000 UNIT/ML 1 ML VIAL SQ PRN (09:04)
[2023-06-06] MEDS: ONDANSETRON 4 MG/2 ML VIAL IVP ONE (09:05)
[2023-06-06 09:10] LABS: Glucose,Whole Blood 126 mg/dL (70-110)
[2023-06-06] MEDS: FAMOTIDINE 20 MG/2 ML VIAL IVP ONE (09:13)
[2023-06-06] MEDS: diphenhydrAMINE 50 MG/ML 1 ML VIAL IVP ONE (09:13)
[2023-06-06] MEDS ORDERED: MIDAZOLAM 2 MG/2 ML VIAL ONE (10:01)
[2023-06-06] MEDS ORDERED: ROCURONIUM 10 MG/ML (5 ML VIAL) IV ONE (10:01)
[2023-06-06] MEDS ORDERED: diphenhydrAMINE 50 MG/ML 1 ML VIAL ONE (10:01)
[2023-06-06] MEDS ORDERED: GLYCOPYRROLATE 0.2 MG/ML 2 ML VIAL ONE (10:01)
[2023-06-06] MEDS ORDERED: PROPOFOL 10 MG/ML 20 ML VIAL IV ONE (10:01)
[2023-06-06] MEDS ORDERED: KETOROLAC 15 MG/ML 1 ML VIAL ONE (10:01)
[2023-06-06] MEDS ORDERED: fentaNYL (PF) 50 MCG/ML 2 ML AMP ONE (10:01)
[2023-06-06] MEDS ORDERED: HYDROmorphone (PF) 1 MG/ML ONE (10:01)
[2023-06-06] MEDS ORDERED: SUCCINYLCHOLINE CHLORIDE 200 MG/10 ML VIAL IV ONE (10:01)
[2023-06-06] MEDS ORDERED: KETAMINE HCL IN 0.9 % NACL 50 MG/5 ML SYRINGE ONE (10:01)
[2023-06-06] MEDS ORDERED: NEOSTIGMINE 1 MG/ML 10 ML VIAL ONE (10:01)
[2023-06-06] MEDS ORDERED: LIDOCAINE 1% INJ 10MG/ML (20 ML MDV) ONE (10:01)
[2023-06-06] MEDS: LIDOCAINE 1%-EPI 1:100,000 50 ML VIAL SQ ONE (10:49)
[2023-06-06] MEDS: LACTATED RINGERS 1,000 ML IV ONE (11:10)
[2023-06-06 11:41] LABS: Glucose,Whole Blood 183 mg/dL (70-110)
[2023-06-06] MEDS ORDERED: ONDANSETRON 4 MG/2 ML VIAL IVP PRN (12:50)
[2023-06-06] MEDS: D5-0.45% NACL WITH KCL 20MEQ/L 1,000 ML IV SCH (14:49)
[2023-06-06] MEDS: METOCLOPRAMIDE 5 MG/ML 2 ML VIAL IVP SCH (18:23)
[2023-06-06] MEDS: HYDROmorphone 1 MG/ML 1 ML SYRINGE IVP PRN (23:53)
[2023-06-07 03:12] VITALS: RESP 18
[2023-06-07] MEDS: LOSARTAN 50 MG TAB PO SCH (09:20)
[2023-06-07] MEDS: SERTRALINE 50 MG TAB PO SCH (09:20)
[2023-06-07] MEDS: ENOXAPARIN 40 MG/0.4 ML SYRINGE SQ SCH (09:20)
[2023-06-07] MEDS: PANTOPRAZOLE 40 MG TABLET PO SCH (09:20)
[2023-06-07] MEDS: PIOGLITAZONE 15 MG TAB PO SCH (09:20)
[2023-06-07] MEDS ORDERED: HYDROcodone/APAP 5-325MG 1 EACH TAB PO PRN (12:53)
[2023-06-07 12:57] VITALS: BP 92/56; PULSE 61; TEMP 98.3
--- NOTE | 2023-06-07 13:10 | P.DS ---
Providers Date of admission: 06/06/23 07:47 Expected date of discharge: 06/07/23 Attending physician: Michi Goff Primary care physician: Anand Blackwell Hospital Course: Discharge diagnosis 1. GERD status post laparoscopic Niesen complication Hospital course This is a 52-year-old female with history of GERD. She is status post laparoscopic Niesen fundoplication. Patient tolerated surgery well. Her pain is controlled. She is tolerating diet. She has been up and ambulating. She is afebrile. She is having flatus. She is stable for discharge. Please refer to chart for any further details. Physician Frit Coater note has been reviewed by physician. Signing provider agrees with the documented findings, assessment, and plan of care. Patient Condition at Discharge: Stable Plan - Discharge Summary Discharge Rx Participant: Yes New Discharge Prescriptions: New HYDROcodone/APAP 5-325MG [[place] 5-325] 1 tab PO Q6HR PRN 2 Days #6 tab PRN Reason: Pain Continue Omeprazole 20 mg PO DAILY Sertraline [Zoloft] 150 mg PO DAILY Pioglitazone [Actos] 15 mg PO DAILY No Action Losartan [Cozaar] 50 mg PO DAILY Discharge Medication List Pioglitazone [Actos] 15 mg PO DAILY 01/01/21 [History] Sertraline [Zoloft] 150 mg PO DAILY 01/01/21 [History] Losartan [Cozaar] 50 mg PO DAILY 05/11/23 [History] Omeprazole 20 mg PO DAILY 05/11/23 [History] HYDROcodone/APAP 5-325MG [[place] 5-325] 1 tab PO Q6HR PRN 2 Days #6 tab 06/07/23 [Rx] Follow up Appointment(s)/Referral(s): Michi Goff MD [STAFF PHYSICIAN] - 1 Week Activity/Diet/Wound Care/Special Instructions: No driving while taking [place] No lifting over 10 pounds Shower daily. No soaking or tub baths for 2 weeks Very light activity until you are reevaluated at your follow up appointment with your surgeon Continue full liquid/soft diet x 2 weeks Hold on taking Cozaar for 2 days Discharge Disposition: HOME SELF-CARE
[2023-06-07 14:09] VITALS: BMI 41.7
--- NOTE | 2023-06-23 14:38 | P.OP ---
Date of Procedure: 06/06/23 Preoperative Diagnosis: GERD Postoperative Diagnosis: GERD Procedure(s) Performed: laparoscopic Lalo fundoplication Anesthesia: JUVENAL Surgeon: Michi Goff Estimated Blood Loss (ml): 5 Pathology: none sent Condition: stable Disposition: PACU Description of Procedure: the patient is placed on the op table in the supine position. She received general endotracheal tube anesthesia. She was then placed in dorsal thigh position. Her abdomen is prepped draped in sterile fashion. Using a 5 mm optical trocar in direct vision the [place] Was entered in the left periumbilical area. The abdomen insufflated. After adequate insufflation a 5 mm trocar was placed in the right epigastric, left epigastric, right lateral and then the left lateral position. The liver retractor was used to elevate the left lobe of the liver. The stomach and hiatal hernia were visualized. Using the harmonic scissors the hiatal hernia was dissected free and then the stomach was reduced back into the peritoneal cavity. The crural defect was then closed with 2-0 Ethibond suture. And then a 360 degree fundoplication wrap was performed over a 58 [place] bougie dilator. The wrap was secured with 2 oh-0 Ethibond suture. The edges irrigated there is no bleeding seen. The trocars were withdrawn. The skin was then closed interrupted 3-0 Monocryl suture. Dermarest was applied. Patient taught procedure well. She was sent to recovery room in stable condition.
== END 2023-06-07 14:19 | disposition home or self-care (01) | DRG 327 ==
LOC: EDSTATUS 07:30 → 2ORMAIN 07:47 → 5NMEDONC 13:34
PROVIDERS: ADMIT Surgery; ATTEND Surgery
PROC: 0DV44ZZ Restriction of Esophagogastric Junction, Percutaneous Endoscopic Approach (ICD-10-PCS; principal; 2023-06-06 09:40)
DX: K21.00 Gastro-esophageal reflux disease with esophagitis, without bleeding (principal); Z68.41 Body mass index [BMI] 40.0-44.9, adult; E11.9 Type 2 diabetes mellitus without complications; I10 Essential (primary) hypertension; F32.9 Major depressive disorder, single episode, unspecified; F17.210 Nicotine dependence, cigarettes, uncomplicated; E66.9 Obesity, unspecified; E78.5 Hyperlipidemia, unspecified; Z90.711 Acquired absence of uterus with remaining cervical stump; Z90.49 Acquired absence of other specified parts of digestive tract